=== PATIENT | female | born 1975 | race Caucasian/White ===

== ENCOUNTER 2024-02-28 14:18 | Inpatient (IN) | payer MEDICAID ==
[~2024-02-28] VITALS: Ht 160 cm; Wt 59.7 kg
[2024-02-28 15:59] LABS: BASOPHILS % (AUTO) 1.1 % (0.0-2.0); EOSINOPHILS % (AUTO) 1.1 % (1.0-6.0); HEMATOCRIT 37.9 % (36-46); HEMOGLOBIN 12.2 g/dL (12.0-16.0); LYMPHOCYTES # (AUTO) 2.5 K/uL (1.0-4.8); LYMPHOCYTES % (AUTO) 19.2 % (22.0-44.0); MEAN CORPUSCULAR HEMOGLOBIN 27.6 pg (26.0-34.0); MEAN CORPUSCULAR HGB CONC 32.2 G/dL (31.0-37.0); MEAN CORPUSCULAR VOLUME 86 fL (80-100); MONOCYTES # (AUTO) 0.5 K/uL (0.1-1.0); NEUTROPHILS # (AUTO) 9.9 K/uL (1.8-7.7); NEUTROPHILS % (AUTO) 74.6 % (40.0-70.0); PLATELET COUNT (AUTO) 468 K/uL (150-450); RED BLOOD CELL COUNT(AUTO) 4.43 MIL/uL (4.00-5.20); RED CELL DISTRIBUTION WIDTH 16.3 % (11.5-14.5); WHITE BLOOD COUNT (AUTO) 13.2 K/uL (4.5-11.0)
[2024-02-28 16:08] LABS: ANION GAP 12 mmol/L (8-16); CALCIUM, TOTAL 8.8 mg/dL (8.8-10.5); CARBON DIOXIDE 24 mmol/L (22-29); CHLORIDE 104 mmol/L (98-107); CREATININE 0.74 mg/dL (0.60-1.30); GLOMERULAR FILTR. RATE CALC > 60 mL/min (>60); GLUCOSE,RANDOM 89 mg/dL (70-110); POTASSIUM 4.1 mmol/L (3.5-5.1); SODIUM SERUM 140 mmol/L (136-145); UREA NITROGEN, BLOOD 12 mg/dL (7-18)
[2024-02-28 16:14] LABS: ALANINE AMINOTRANSFERASE 33 U/L (12-78); ALBUMIN 3.7 g/dL (3.4-5.0); ALKALINE PHOSPHATASE 83 U/L (46-116); ASPARTATE AMINOTRANSFERASE 21 U/L (15-37); BILIRUBIN,TOTAL 0.4 mg/dL (0.1-1.0); TOTAL PROTEIN, SERUM 7.6 g/dL (6.4-8.2)
[2024-02-28] MEDS ORDERED: ZOLPIDEM TARTRATE 10 MG TABLET PO PRN (16:15)
[2024-02-28 16:32] LABS: ALCOHOL, BLOOD (SERUM) 27 mg/dL (0-10)
[2024-02-28 17:42] LABS: COVID AG,FIA SOURCE NASAL SWAB
[2024-02-28 18:24] LABS: SARS-COV2 (COVID) ANTIGEN,FIA Negative (Negative)
[2024-02-29 04:23] VITALS: BP 91/62; PULSE 68; RESP 18; TEMP 97.7; O2SAT 98
[2024-02-29] MEDS ORDERED: ONDANSETRON HCL 4 MG TABLET PO PRN (08:00)
[2024-02-29] MEDS ORDERED: MAG HYDROX/ALUMINUM HYD/SIMETH ES 30 ML SUSPENSION UDCUP PO PRN (08:00)
[2024-02-29] MEDS ORDERED: MAGNESIUM HYDROXIDE SUSPENSION 30 ML UDCUP PO PRN (08:00)
[2024-02-29] MEDS ORDERED: DOCUSATE SODIUM 100 MG CAPSULE PO PRN (08:00)
[2024-02-29] MEDS ORDERED: CloNIDine HCL 0.1 MG TABLET PO PRN (08:00)
[2024-02-29] MEDS ORDERED: GuaiFENesin/D-METHORPHAN [SUGAR-FREE] 200-20MG/10 ML SYRUP UDCUP PO PRN (08:00)
[2024-02-29] MEDS ORDERED: PETROLATUM,WHITE 28 GM JELLY TP PRN (08:00)
[2024-02-29] MEDS ORDERED: IBUPROFEN 400 MG TABLET PO PRN (08:00)
[2024-02-29] MEDS ORDERED: LOPERAMIDE HCL 2 MG CAPSULE PO PRN (08:00)
[2024-02-29] MEDS ORDERED: ALBUTEROL SULFATE HFA 90 MCG/PUFF 8 GM INHALER IH PRN (08:00)
[2024-02-29] MEDS ORDERED: ACETAMINOPHEN 325 MG TABLET PO PRN (08:00)
[2024-02-29 08:29] VITALS: BP 125/84; PULSE 88; RESP 18; TEMP 98; O2SAT 99
[2024-02-29 08:59] LABS: CHOL/HDL RATIO 2.9 (3.9-5.7); FREE T4 (FREE THYROXINE) 0.92 ng/dL (0.76-1.46)
[2024-02-29] MEDS: ESCITALOPRAM OXALATE 10 MG TABLET PO SCH (11:43)
[2024-02-29 20:00] VITALS: BP 103/62; PULSE 67; RESP 17; TEMP 98.2
[2024-02-29] MEDS: SIMVASTATIN 10 MG TABLET PO SCH (20:32)
[2024-03-01 08:04] LABS: HEMOGLOBIN A1C 5.6 % (3.8-5.6)
[2024-03-01 08:11] LABS: THYROID STIMULATING HORMONE 1.23 uIU/mL (0.36-3.74)
[2024-03-01 08:28] VITALS: RESP 16
[2024-03-01 08:29] LABS: APPEARANCE,URINE TURBID (CLEAR); BILIRUBIN,URINE NEGATIVE (NEGATIVE); COLOR,URINE YELLOW (YELLOW); GLUCOSE, URINE (UA) NEGATIVE (NEGATIVE); KETONES,URINE NEGATIVE (NEGATIVE); LEUKOCYTE ESTERASE ,URINE SMALL (NEGATIVE); NITRATE,URINE NEGATIVE (NEGATIVE); OCCULT BLOOD,URINE NEGATIVE (NEGATIVE); PH,URINE 5.5 (5.0-8.0); PH,URINE DRUG SCREEN 5.5 (5.0-8.0); PROTEIN,URINE NEGATIVE (NEGATIVE); SPECIFIC GRAVITIY, URINE 1.026 (1.003-1.030); UROBILINOGEN,URINE <=1.0 mg/dL (<=1.0)
[2024-03-01 08:37] LABS: ALCOHOL, URINE DRUG SCREEN NEGATIVE (NEGATIVE); AMPHET/METH SCREEN,URINE POSITIVE (NEGATIVE); BARBITURATE SCREEN, URINE NEGATIVE (NEGATIVE); BENZODIAZEPINES SCREEN,URINE NEGATIVE (NEGATIVE); CANNABINOID SCREEN,URINE POSITIVE (NEGATIVE); COCAINE SCREEN,URINE NEGATIVE (NEGATIVE); METHADONE SCREEN, URINE NEGATIVE (NEGATIVE); OPIATE SCREEN,URINE NEGATIVE (NEGATIVE); PHENCYCLIDINE SCREEN,URINE NEGATIVE (NEGATIVE)
[2024-03-01 08:57] LABS: RBC,URINE None Seen /HPF (0-2)
[2024-03-01 08:58] LABS: BACTERIA,URINE Many /HPF (None Seen); SQUAMOUS EPITHELIAL CELL,UR Many /LPF (None Seen)
[2024-03-01] MEDS: CEPHALEXIN MONOHYDRATE 250 MG CAPSULE PO SCH (13:00)
[2024-03-01] MEDS: ARIPiprazole 5 MG TABLET PO SCH (16:11)
[2024-03-01 20:25] VITALS: BP 101/67; PULSE 77; TEMP 98; O2SAT 99
[2024-03-02 08:34] VITALS: BP 142/74; PULSE 79; RESP 18; TEMP 98; O2SAT 96
[2024-03-02] MEDS: LORazepam 2 MG TABLET PO PRN (16:40)
[2024-03-02 21:33] VITALS: BP 122/66; PULSE 77; RESP 18; TEMP 97.7; O2SAT 98
[2024-03-03 08:20] VITALS: BP 100/55; PULSE 76; RESP 16; TEMP 98.2; O2SAT 98
[2024-03-03 22:46] VITALS: BP 108/72; PULSE 72; RESP 18; TEMP 97.2; O2SAT 96
[2024-03-04 07:50] LABS: BASOPHILS % (AUTO) 0.6 % (0.0-2.0); EOSINOPHILS % (AUTO) 2.3 % (1.0-6.0); HEMATOCRIT 37.4 % (36-46); LYMPHOCYTES # (AUTO) 3.1 K/uL (1.0-4.8); LYMPHOCYTES % (AUTO) 25.6 % (22.0-44.0); MEAN CORPUSCULAR HGB CONC 32.1 G/dL (31.0-37.0); MEAN CORPUSCULAR VOLUME 87 fL (80-100); MONOCYTES # (AUTO) 0.7 K/uL (0.1-1.0); MONOCYTES % (AUTO) 5.6 % (2.0-9.0); NEUTROPHILS % (AUTO) 65.9 % (40.0-70.0); PLATELET COUNT (AUTO) 458 K/uL (150-450); RED BLOOD CELL COUNT(AUTO) 4.29 MIL/uL (4.00-5.20); RED CELL DISTRIBUTION WIDTH 16.5 % (11.5-14.5); WHITE BLOOD COUNT (AUTO) 12.2 K/uL (4.5-11.0)
[2024-03-04 08:23] VITALS: BP 114/62; PULSE 76; RESP 16; TEMP 98; O2SAT 100
[2024-03-04 21:30] VITALS: BP 126/71; PULSE 68; RESP 18; TEMP 98.1; O2SAT 100
[2024-03-05 09:44] VITALS: BP 100/65; PULSE 82; RESP 19; TEMP 97.7; O2SAT 98
[2024-03-05 20:33] VITALS: BP 97/58; PULSE 61; TEMP 97.4; O2SAT 97
[2024-03-06 08:33] VITALS: BP 127/88; PULSE 86; RESP 14; TEMP 97.7; O2SAT 100
[2024-03-06 21:25] VITALS: BP 104/64; PULSE 70; RESP 18; TEMP 98; O2SAT 95
[2024-03-07 08:00] VITALS: BP 101/73; PULSE 85; RESP 14; TEMP 98.1; O2SAT 99
[2024-03-07 08:39] LABS: BASOPHILS % (AUTO) 0.6 % (0.0-2.0); EOSINOPHILS % (AUTO) 2.6 % (1.0-6.0); HEMATOCRIT 35.7 % (36-46); HEMOGLOBIN 11.7 g/dL (12.0-16.0); LYMPHOCYTES # (AUTO) 2.9 K/uL (1.0-4.8); LYMPHOCYTES % (AUTO) 30.1 % (22.0-44.0); MEAN CORPUSCULAR HEMOGLOBIN 28.1 pg (26.0-34.0); MEAN CORPUSCULAR HGB CONC 32.7 G/dL (31.0-37.0); MEAN CORPUSCULAR VOLUME 86 fL (80-100); MONOCYTES # (AUTO) 0.6 K/uL (0.1-1.0); NEUTROPHILS # (AUTO) 5.8 K/uL (1.8-7.7); NEUTROPHILS % (AUTO) 60.7 % (40.0-70.0); PLATELET COUNT (AUTO) 356 K/uL (150-450); RED BLOOD CELL COUNT(AUTO) 4.16 MIL/uL (4.00-5.20); RED CELL DISTRIBUTION WIDTH 16.7 % (11.5-14.5); WHITE BLOOD COUNT (AUTO) 9.5 K/uL (4.5-11.0)
[2024-03-07 13:12] VITALS: BP 110/70; PULSE 77; RESP 18; TEMP 97.8; O2SAT 97
[2024-03-07 21:39] VITALS: BP 100/63; PULSE 75; RESP 18; TEMP 98.2; O2SAT 98
[2024-03-08 08:33] VITALS: BP 102/63; PULSE 67; RESP 17; TEMP 98; O2SAT 100
[2024-03-08] MEDS: QUEtiapine FUMARATE 100 MG TABLET PO PRN (12:42)
[2024-03-08 20:41] VITALS: BP 111/64; PULSE 67; TEMP 98.1; O2SAT 99
[2024-03-09 08:47] VITALS: BP 108/64; PULSE 61; RESP 18; TEMP 98.1; O2SAT 96
[2024-03-09 21:24] VITALS: BP 116/62; PULSE 65; TEMP 98.3; O2SAT 97
[2024-03-10 08:26] VITALS: BP 111/63; PULSE 68; RESP 16; TEMP 98.6; O2SAT 99
[2024-03-10] MEDS: ARIPiprazole LAUROXIL ER SUSPENSION 882 MG/3.2 ML SYRINGE IM ONE (10:32)
[2024-03-10] MEDS: ARIPiprazole LAUROXIL,SUBMICR. ER SUSPENSION 675 MG/2.4 ML SYRINGE IM ONE (10:32)
[2024-03-10] MEDS: NICOTINE 14 MG/24 HOUR PATCH TD PRN (14:14)
[2024-03-10 20:25] VITALS: BP 116/75; PULSE 64; TEMP 97.7; O2SAT 100
[2024-03-11 08:50] VITALS: BP 105/64; PULSE 70; RESP 17; TEMP 97.9; O2SAT 99
[2024-03-11] MEDS ORDERED: ESCI-8 PO ×2 (11:14→18:04)
[2024-03-11] MEDS ORDERED: ARIP5TAB37 PO (11:15)
[2024-03-11] MEDS ORDERED: SIMV-259 PO (11:16)
[2024-03-11] MEDS ORDERED: ARIP882S2 IM (18:04)
[2024-03-11] MEDS ORDERED: SIMV10TA97 PO (18:04)
[2024-04-09] MEDS ORDERED: ARIPiprazole LAUROXIL ER SUSPENSION 882 MG/3.2 ML SYRINGE IM SCH (09:00)
== END 2024-03-11 12:00 | disposition home or self-care (01) | DRG 750 ==
LOC: EMS 14:19 → B3A 02-29 → UNDOADMIN 02-29 01:20 → B3A 02-29 01:20
PROVIDERS: ADMIT Psychiatry & Neurology Psychiatry; ATTEND Psychiatry & Neurology Psychiatry
PROC: GZHZZZZ Group Psychotherapy (ICD-10-PCS; principal; 2024-02-29)
PROC: GZ56ZZZ Individual Psychotherapy, Supportive (ICD-10-PCS; 2024-02-29)
DX: F25.1 Schizoaffective disorder, depressive type (principal); R45.851 Suicidal ideations; E78.5 Hyperlipidemia, unspecified; F10.10 Alcohol abuse, uncomplicated; Z87.891 Personal history of nicotine dependence; F15.10 Other stimulant abuse, uncomplicated; F12.10 Cannabis abuse, uncomplicated; N39.0 Urinary tract infection, site not specified; F41.9 Anxiety disorder, unspecified; Z79.899 Other long term (current) drug therapy
CPT/HCPCS: 80053; 80061; 80307; 81001; 83036; 84439; 84443; 85025; 87086; 87186; G0480; Q9967